=== PATIENT | female | born 1990 | race Caucasian/White ===

== ENCOUNTER 2017-06-24 18:28 | Emergency (ER) | payer OTHER ==
[2017-06-24 18:42] VITALS: BP 129/68; BMI 39.0
[2017-06-24] MEDS ORDERED: ZOFRAN INJ 4 MG VIAL IM ONE (20:50)
[2017-06-24] MEDS ORDERED: TORADOL 60 MG VIAL IM ONE (20:51)
--- NOTE | 2017-06-24 20:56 | DR.GENAD ---
HPI - PCP Primary Care Physician: manohar gray - Complaint/Symptoms Chief Complaint Doctors Comments: Patient is complaining of RUQ pain and right CVA pain for the past seven days getting worst today after eating a salad. State she was to have an ultrosound of her gallbladder three days ago but she missed the appointment and was rescheduled for next week. States she had episode of vomiting today. States she is having cramping pain that started in the right side of her back and radiates to the front of her side. States the pain is 6 of 10 with the pain worst after eating. She denies hematuria, dysuria , diarrhea, cold, or cough. States she has had bilateral tubal ligation and her periods has been regular. Chief Complaint:: "I think it's my galbladder". sour burping and pain in my abdomen with n/v - Nurses notes reviewed Nurses Notes Review: Yes - Source History Provided: Patient - Mode of Arrival Mode of Arrival: Ambulatory - Timing Onset of Chief Complaint: 06/16/17 Came on: Gradually - Duration Duration: Intermittent How lon Duration: Days - Location Location: right CVA and right hypogastric pain - Severity Severity: Moderate - Modifying Factors Worsens:: eating Improves:: nothing PMH - PMH Past Medical History: No Past Surgical History: Yes Surgical History: , [employer] Surgery, Tonsillectomy Past Surgical History Comment: tubal and c section - Family History History of Family Medical Conditions: No - Social History Does patient currently use any type of tobacco product: No Have you used tobacco products in the last 12 months: No Type of Tobacco Use: None Does any household member use tobacco: No Alcohol Use: None Do you use any recreational Drugs:: No Lives With: Family Lives Where: Home - infectious screening In the last 2 months have you had wt loss of >10#?: NO Have you had fever, night sweats or hemotysis?: No Have you traveled outside the country in the last 6 months?: No Isolation: Standard ROS - Review of Systems Constitutional: No Symptoms Reported. negative: See HPI, Chills, Diaphoresis, Fever, Malaise, Weakness, Irritable, Fatigue, Loss of Appetite, Other Eyes: No Symptoms Reported. negative: See HPI, Eye Pain, Blurred Vision, Tearing, Discharge, Photophobia, Diplopia, Other ENTM: No Symptoms Reported Respiratoy: No Symptoms Reported. negative: See HPI, Productive Cough, Non- Productive Cough, Moist Cough, Dry Cough, Hacking Cough, Barking Cough, Brassy Cough, Orthopnea, Short of Breath, Stridor, Wheezing, Hemoptysis, Other Cardiovascular: No Symptoms Reported. negative: See HPI, Chest Pain, Edema, Palpitations, Syncope, Cyanosis, Skin Mottling, Other Gastrointestinal/Abdominal: No Symptoms Reported, Abdominal Pain, Nausea, Vomiting. negative: See HPI, Constipation, Diarrhea, Food Intolerance, Other Genitourinary: No Symptoms Reported. negative: See HPI, Discharge, Dysuria, Frequency, Hematuria, Pain, Bleeding, Other Neurological: No Symptoms Reported Musculoskeletal: No Symptoms Reported Integumentary: No Symptoms Reported. negative: See HPI, Change in Color, Change in Hair/Nails, Dryness, Lesions, Lumps, Rash, Itching, Wound, Bruises, Juandice, Other Hematologic/Lymphatic: No Symptoms Reported Endocrine: No Symptoms Reported, Decreased Appetite Psychiatric: No Symptoms Reported. negative: See HPI, Anxiety, Depression, Hallucinations, Excessive crying, Suicidal, Other PE - Vital Signs Vitals: Temperature 97.1 F Pulse Rate 80 Respiratory Rate 18 Blood Pressure 129/68 O2 Sat by Pulse Oximetry 99 - General Limitations: No Limitations General Appearance: Alert, In Distress (moderate). negative: In No Apparent Distress, Appears Intoxicated, Anxious, Lethargic, Obtunded, Obese, Cachectic, Other - Head Head Exam: Normal Inspection, Atraumatic, Normocephalic - Eyes Eye exam: Normal Appearance, PERRL, EOMI. negative: Scleral Icterus, Conjunctival Injection, Nystagmus, Miosis, Mydrasis, Periorbital Swelling, Periorbital Tenderness, Other - ENT ENT Exam: Normal Exam, Normal Oropharynx, Normal External Ear Exam, Mucous Membranes Moist, TM's Normal Bilaterally External Ear Exam: Normal External Inspection. negative: Auricular Hematoma, Auricular Trauma, Mastoid Tenderness, Pain with Movement, External Tenderness, Periauricular Adenopathy, Other TM/Canal Exam: Bilateral Normal Nose Exam: Normal Nose Exam Mouth Exam: Normal Inspection. negative: Drooling, Trismus, Lip Swelling, Tongue Elevation, Tongue Swelling, Laceration, Other Throat Exam: Normal Inspection. negative: Tonsillar Erythema, Tonsillomegaly, Tonsillar Exudate, R Peritonsillar Mass, L Peritonsillar Mass, Muffled Voice, Other - Neck Neck Exam: Normal Inspection, Full ROM, Trachea Midline - Chest Chest Inspection: Normal Inspection, Symmetric Chest Wall Rise. negative: Tenderness, Rash, Abscess, Other - Respiratory Respiratory Exam: Normal Lung Sounds Bilat. negative: Accessory Muscle Use, Chest Wall Tenderness, Prolonged Expiratory Phase, Respiratory Distress, Stridor , Other Respiratory Exam: Bilateral Clear to Auscultation - Cardiovascular Cardiovascular Exam: Regular Rate, Normal Rhythm, Normal Heart Sounds. negative : Bradycardia, Tachycardia, Irregular Rhythm, Systolic Murmur, Diastolic Murmur , Rubs, Gallop, Clicks, JVD, +S1, +S2, +S3, +S4, Other - Abdominal Exam Abdominal Exam: Normal Inspection, Normal Bowel Sounds, Soft, Tenderness (RUQ tenderness; right CVA tenderness; no rebound), Dimnished Bowel Sounds Abdominal Tenderness: RUQ, Moderate - Extremities Extremities Exam: Normal Inspection, Full ROM, Normal Capillary Refill. negative: Tenderness, Edema, Joint Swelling, Calf Tenderness, Other - Back Back Exam: Normal Inspection, Full ROM. negative: Tenderness, (R) CVA Tenderness, (L) CVA Tenderness, Muscle Spasm, Paraspinal Tenderness, Vertebral Tenderness, Rashes, (R) Sciatic Notch Tenderness, (L) Sciatic Notch Tendern, (R ) Straight Leg Raise, (L) Straight Leg Raise, Other - Neurologic Neurological Exam: Alert, Oriented X3, CN II-XII Intact, Normal Gait, Reflexes Normal - Psychiatric Psychiatric Exam: Normal Affect, Normal Mood. negative: Depressed, Agitated, Anxious, Flat Affect, Manic, Homicidal Ideation, Suicidal Ideation, Other - Skin Skin Exam: Warm, Dry, Intact, Normal Color. negative: Rash, Cyanosis, Diaphoresis, Erythema, Pallor, Mottled, Other ROR - Labs Reviewed Laboratory Results Reviewed?: Yes (all labs and x-ray results reviewed and discussed with patient) Result Diagrams: 06/24/17 20:58 06/24/17 20:58 Laboratory: WBC 11.1 X10^3/uL (3.6-10.0) H 06/24/17 20:58 RBC 5.14 X10^6/uL (3.5-5.4) 06/24/17 20:58 Hgb 12.2 g/dL (12.0-16.0) 06/24/17 20:58 Hct 37.1 % (36.0-47.0) 06/24/17 20:58 MCV 72.3 fL (80.0-100.0) L 06/24/17 20:58 MCH 23.8 pg (27.0-34.0) L 06/24/17 20:58 MCHC 32.9 g/dL (33.0-35.0) L 06/24/17 20:58 RDW 15.7 % (11.6-16.5) 06/24/17 20:58 Plt Count 244 X10^3/uL (150.0-450.0) 06/24/17 20:58 Plt Count Comment Adequate (ADEQUATE) 06/24/17 20:58 MPV 9.5 fL (7.4-11.0) 06/24/17 20:58 Neut % 60.8 % (42.0-75.0) 06/24/17 20:58 Lymph % 26.7 % (21.0-51.0) 06/24/17 20:58 Josephine % 4.6 % (0.0-13.0) 06/24/17 20:58 Eos % 7.2 % (0.9-2.9) H 06/24/17 20:58 Baso % 0.7 % (0.2-1.0) 06/24/17 20:58 Neut # 6.7 x10^3/uL (2.2-4.8) H 06/24/17 20:58 Lymph # 3.0 X10^3/uL (1.3-2.9) H 06/24/17 20:58 Josephine # 0.5 x10^3/uL (0.3-0.8) 06/24/17 20:58 Eos # 0.8 x10^3/uL (0.0-0.2) H 06/24/17 20:58 Baso # 0.1 X10^3/uL (0.0-0.1) 06/24/17 20:58 Absolute Nucleated RBC 0.0 /100WBC 06/24/17 20:58 Plt Morphology Comment Normal (NORMAL) 06/24/17 20:58 RBC Morphology Abnormal (NORMAL) A 06/24/17 20:58 Hypochromasia 1+ A 06/24/17 20:58 Sodium 140 mmol/L (136-145) 06/24/17 20:58 Corrected Sodium TNP 06/24/17 20:58 Potassium 3.9 mmol/L (3.5-5.1) 06/24/17 20:58 Chloride 103 mmol/L (98-107) 06/24/17 20:58 Carbon Dioxide 29.5 mmol/L (21-32) 06/24/17 20:58 BUN 13 mg/dL (7-18) 06/24/17 20:58 Creatinine 0.89 mg/dL (0.55-1.02) 06/24/17 20:58 Est GFR (MDRD) Af Amer > 60 (>60) 06/24/17 20:58 Est GFR (MDRD) Non-Af > 60 (>60) 06/24/17 20:58 Glucose 90 mg/dL (65-99) 06/24/17 20:58 Calcium 9.1 mg/dL (8.5-10.1) 06/24/17 20:58 Corrected Calcium TNP 06/24/17 20:58 Total Bilirubin 0.40 mg/dL (0.2-1.0) 06/24/17 20:58 AST 18 Units/L (15-37) 06/24/17 20:58 ALT 20 Units/L (12-78) 06/24/17 20:58 Alkaline Phosphatase 81 Units/L (46-116) 06/24/17 20:58 Total Protein 7.8 g/dL (6.4-8.2) 06/24/17 20:58 Albumin 3.8 g/dL (3.4-5.0) 06/24/17 20:58 Globulin 4.0 g/dL (2.5-4.5) 06/24/17 20:58 Albumin/Globulin Ratio 1.0 Ratio (1.1-2.1) L 06/24/17 20:58 Amylase 39 Units/L (25-115) 06/24/17 20:58 Lipase 113 Units/L (73-393) 06/24/17 20:58 HCG, Qual Negative <10 mIU/mL 06/24/17 20:58 Specimen Type Clean catch urine 06/24/17 22:13 Urine Color Yellow (YELLOW) 06/24/17 22:13 Urine Appearance Clear (CLEAR) 06/24/17 22:13 Urine pH 5.0 (5.0 - 8.0) 06/24/17 22:13 Ur Specific [place] 1.025 (1.000-1.030) 06/24/17 22:13 Urine Protein Negative (NEGATIVE) 06/24/17 22:13 Urine Glucose (UA) Negative (NEGATIVE) 06/24/17 22:13 Urine Ketones 3+ (NEGATIVE) 06/24/17 22:13 Urine Occult Blood Negative (NEGATIVE) 06/24/17 22:13 Urine Nitrite Negative (NEGATIVE) 06/24/17 22:13 Urine Bilirubin Negative (NEGATIVE) 06/24/17 22:13 Urine Urobilinogen Normal (NORMAL) 06/24/17 22:13 Ur Leukocyte Esterase Negative (NEGATIVE) 06/24/17 22:13 Urine RBC 0-3 /HPF (NEGATIVE) 06/24/17 22:13 Urine WBC 0-3 /HPF (NEGATIVE) 06/24/17 22:13 Ur Squamous Epith Cells Few /HPF (NEGATIVE) 06/24/17 22:13 Urine Bacteria Negative /HPF (NEGATIVE) 06/24/17 22:13 Ur Culture Indicated? No/not indicated 06/24/17 22:13 - XRAY XRAY Interpreted by: Radiologist (CT abdomen pelviws: No abnormality involving the abdomen or pelvis) - Diagnosis Discharge Problem: Abdominal pain, RUQ abdominal pain - Discharge Plan Disposition: 01 HOME, SELF-CARE Condition: Stable Prescriptions: Ibuprofen [MOTRIN TAB 800 MG *] 800 mg PO BID PRN #60 tab PRN Reason: Pain/Inflammation Ondansetron [Zofran Odt] 4 mg PO Q8H PRN #12 tab PRN Reason: Nausea/Vomiting - Follow ups/Referrals Follow ups/Referrals: Kimmy BISWAS [Primary Care Provider] - 3 days PRADEEP KNOWLES [STAFF PHYSICIAN] - 3 days - Instructions Instructions: Nausea, Adult, Abdominal Pain, Adult, [id number]
[2017-06-24 21:08] LABS: BASOPHILS # (AUTO) 0.1 X10^3/uL (0.0-0.1); BASOPHILS % (AUTO) 0.7 % (0.2-1.0); EOSINOPHILS # (AUTO) 0.8 x10^3/uL (0.0-0.2); EOSINOPHILS % (AUTO) 7.2 % (0.9-2.9); HEMATOCRIT 37.1 % (36.0-47.0); HEMOGLOBIN 12.2 g/dL (12.0-16.0); LYMPHOCYTES % (AUTO) 26.7 % (21.0-51.0); MEAN CORPUSCULAR HEMOGLOBIN 23.8 pg (27.0-34.0); MEAN CORPUSCULAR HGB CONC 32.9 g/dL (33.0-35.0); MEAN CORPUSCULAR VOLUME 72.3 fL (80.0-100.0); MEAN PLATELET VOLUME 9.5 fL (7.4-11.0); MONOCYTES # (AUTO) 0.5 x10^3/uL (0.3-0.8); MONOCYTES % (AUTO) 4.6 % (0.0-13.0); NEUTROPHILS # (AUTO) 6.7 x10^3/uL (2.2-4.8); NEUTROPHILS % (AUTO) 60.8 % (42.0-75.0); PLATELET COUNT 244 X10^3/uL (150.0-450.0); RED BLOOD COUNT 5.14 X10^6/uL (3.5-5.4); RED CELL DISTRIBUTION WIDTH 15.7 % (11.6-16.5); WHITE BLOOD COUNT 11.1 X10^3/uL (3.6-10.0)
[2017-06-24] MEDS ORDERED: ZOFRAN INJ 4 MG VIAL ONE (21:08)
[2017-06-24] MEDS ORDERED: TORADOL 60 MG VIAL ONE ×2 (21:08→21:09)
[2017-06-24 21:17] LABS: ALANINE AMINOTRANSFERASE 20 Units/L (12-78); ALBUMIN 3.8 g/dL (3.4-5.0); ALKALINE PHOSPHATASE 81 Units/L (46-116); AMYLASE 39 Units/L (25-115); ASPARTATE AMINO TRANSFERASE 18 Units/L (15-37); BLOOD UREA NITROGEN 13 mg/dL (7-18); CALCIUM 9.1 mg/dL (8.5-10.1); CARBON DIOXIDE 29.5 mmol/L (21-32); CHLORIDE 103 mmol/L (98-107); CREATININE 0.89 mg/dL (0.55-1.02); LIPASE 113 Units/L (73-393); SODIUM 140 mmol/L (136-145); TOTAL PROTEIN 7.8 g/dL (6.4-8.2); eGFR BLACK RACES > 60 (>60); eGFR NON BLACK RACES > 60 (>60)
[2017-06-24 21:18] LABS: SERUM PREGNANCY TEST, QUAL NEGATIVE <10 mIU/mL
[2017-06-24 21:19] LABS: HYPOCHROMASIA 1+; PLATELET MORPHOLOGY COMMENT NORMAL (NORMAL)
--- NOTE | 2017-06-24 21:40 | CT ---
Addendum: The conclusion should read: No abnormality involving the abdomen or pelvis.
[2017-06-24 23:09] LABS: BILIRUBIN,URINE NEGATIVE (NEGATIVE); BLOOD/HEMOGLOBIN,URINE NEGATIVE (NEGATIVE); GLUCOSE, URINE NEGATIVE (NEGATIVE); KETONES,URINE 3+ (NEGATIVE); LEUKOCYTE ESTERASE ,URINE NEGATIVE (NEGATIVE); NITRITES,URINE NEGATIVE (NEGATIVE); PROTEIN,URINE NEGATIVE (NEGATIVE); UROBILINOGEN,URINE NORMAL (NORMAL)
[2017-06-24 23:26] LABS: APPEARANCE,URINE CLEAR (CLEAR); BACTERIA,URINE NEGATIVE /HPF (NEGATIVE); COLOR,URINE YELLOW (YELLOW); RBC,URINE 0-3 /HPF (NEGATIVE); SQUAMOUS EPITHELIAL CELL,UR FEW /HPF (NEGATIVE)
== END 2017-06-25 00:02 | disposition home or self-care (01) ==
LOC: ER 18:45
DX: R10.11 Right upper quadrant pain (principal)
CPT/HCPCS: 36415; 74176; 80053; 81001; 82150; 83690; 84703; 85025; 99282; 99283; J1885; J2405